=== PATIENT | female | born 1980 | race Caucasian/White ===

== ENCOUNTER 2020-08-23 14:42 | Inpatient (IN) | payer MEDICARE, OTHER ==
[~2020-08-23] VITALS: Ht 157.5 cm; Wt 59.4 kg
[2020-08-23] MEDS ORDERED: OMEP20ER PO (15:19)
[2020-08-23] MEDS ORDERED: PRAM.5 PO (15:19)
[2020-08-23] MEDS ORDERED: DIAZ5 PO (15:19)
[2020-08-23] MEDS ORDERED: CINA30 PO (15:20)
[2020-08-23] MEDS ORDERED: THERA-D2000 UNIT PO (15:20)
[2020-08-23] MEDS ORDERED: Calcium Acetat667 MG PO (15:20)
[2020-08-23 15:49] LABS: BASOPHILS ABSOLUTE AUTO 0.08 K/mm3 (0.00-0.23); BASOPHILS PERCENT AUTO 1 % (0-2); EOSINOPHILS ABSOLUTE AUTO 0.15 K/mm3 (0.00-0.68); EOSINOPHILS PERCENT AUTO 3 % (0-6); Hematocrit 39.5 % (33.0-51.0); Hemoglobin 12.9 g/dL (11.5-16.0); IMMATURE GRAN ABSOLUTE AUTO 0.01 K/mm3 (0.00-0.10); IMMATURE GRAN PERCENT AUTO 0 % (0-1); LYMPHOCYTES ABSOLUTE AUTO 0.99 K/mm3 (0.84-5.20); LYMPHOCYTES PERCENT AUTO 17 % (21-46); MONOCYTES ABSOLUTE AUTO 0.35 K/mm3 (0.16-1.47); MONOCYTES PERCENT AUTO 6 % (4-13); Mean Corpuscular HGB 28.9 pg (26.0-34.0); Mean Corpuscular HGB Conc 32.7 g/dL (31.5-36.5); Mean Corpuscular Volume 89 fL (80-100); Mean Platelet Volume 9.8 fL (9.1-12.4); NEUTROPHILS ABSOLUTE AUTO 4.31 K/mm3 (1.96-9.15); NEUTROPHILS PERCENT AUTO 73 % (41-73); Platelet Count 163 K/mm3 (150-400); RDW Coefficient Variation 15.4 % (11.7-14.2); RDW Standard Deviation 50.3 fL (35.1-46.3); Red Blood Cell Count 4.46 M/mm3 (3.80-5.20); White Blood Cell Count 5.89 K/mm3 (4.00-11.30)
[2020-08-23 16:33] LABS: Magnesium, Blood 3.4 mg/dL (1.6-2.4)
[2020-08-23 16:44] LABS: Albumin, Blood 3.5 g/dL (3.4-5.0); Albumin/Globulin Ratio 0.8 (0.8-1.8); Bilirubin, Total 0.6 mg/dL (0.1-1.0); Bun/Creatinine Ratio 6.9 (12.0-20.0); Calcium, Blood 8.2 mg/dL (8.5-10.1); Creatinine, Blood 19.7 mg/dL (0.40-1.00); Globulin, Blood 4.5 g/dL (2.2-4.0); Phosphorus, Blood 16.1 mg/dL (2.5-4.9); Potassium, Blood 7.1 mmol/L (3.5-5.5)
--- NOTE | 2020-08-23 18:36 | NUR ---
TRANSFER FROM ER TO PCU: PT TO PCU VIA STRETCHER AT 1810. ABLE TO STAND AND TRANSFER TO PCU BED. ALERT AND ORIENTED X4. TELE SHOWING SINUS RHYTHM WITH HR IN THE 70'S. ON ROOM AIR SATING ABOVE 92%. VITAL SIGNS STABLE. BILATERAL LOWER TIBIA AND FEET REDNESS. RIGHT LOWER EXTREMITY MORE RED THAN LEFT. PT STATES RIGHT LEG FROM LOWER TIBIA TO TOES IS PAINFUL. DR. RUIZ AT BEDSIDE AND AWARE OF THIS. CARLOS CALVO IN TO SEE PATIENT FOR DIALYSIS. PLAN TO RUN DIALYSIS FOR 2 HOURS TONIGHT AND AGAIN IN THE MORNING. RIGHT LEG DIALYSIS ACCESS SITE. DIALYSIS CURRENTLY RUNNING. ORIENTED TO ROOM, AND CALL LIGHT. EDUCATED ON FALL PREVENTION. WILL CONTINUE TO MONITOR AND REPORT OFF.
--- NOTE | 2020-08-23 18:57 | NUR ---
TELEPHONE CALL TO DR. MEADE REGARDING BLOOD SUGAR OF 35. 1 AMP D50 GIVEN BY PIPE LINERRN. ANDERSON GIVEN. VERBAL ORDER GIVEN FOR Q1 HOUR [place] CHECKS UNTIL BS STABLE AND D10 AT 75ML/HR ONLY IF HYPOGLYCEMIA PERSISTS.
[2020-08-23 23:16] LABS: Bun/Creatinine Ratio 5.4 (12.0-20.0); Creatinine, Blood 11.4 mg/dL (0.40-1.00); Potassium, Blood 4.3 mmol/L (3.5-5.5)
--- NOTE | 2020-08-24 05:29 | NUR ---
SHIFT SUMMARY PT TO UNIT FROM ED AT BEGINNING OF SHIFT. AXO. VSS. ON DIALYSIS WITH TECH IN ROOM. D50 GIVEN ON DAY SHIFT DUE TO CRITICAL LOW CBG. PT SYMPTOMATIC BUT LESSENING. Q1 CBG'S AT THAT TIME. BLOOD SUGARS HAVE STABILIZED AND PT NOW ON Q4. DIALYSIS COMPLETED W/OUT COMPLICATION. ADMISSION PACKET COMPLETED. PT CONTINUES ON RA. IN SR. R LEG GRAFT INTACT AND DRESSED BY RUG CLEANER HAND. PT HAVING SOME EPIGASTRIC PAIN, GI COCKTAIL ADMINISTERED TO SOME EFFECT. PT HAD EPISODE OF NAUSEA THIS SHIFT, MEDICATED AND SUBSIDED. PT TO RECEIVE SECOND ROUND OF DIALYSIS THIS AM PER TECH, AM LABS SHANELL PULLED THEN. WILL CONTINUE TO MONITOR UNTIL SHIFT CHANGE.
[2020-08-24 09:41] LABS: Hematocrit 39.5 % (33.0-51.0); Hemoglobin 12.7 g/dL (11.5-16.0)
[2020-08-24 10:06] LABS: Magnesium, Blood 2.8 mg/dL (1.6-2.4)
[2020-08-24 10:13] LABS: Albumin, Blood 3.1 g/dL (3.4-5.0); Anion Gap 12 mmol/L (6-16); Blood Urea Nitrogen 68 mg/dL (8-24); Bun/Creatinine Ratio 5.3 (12.0-20.0); CO2, Blood 28 mmol/L (21-32); Calcium, Blood 8.2 mg/dL (8.5-10.1); Chloride, Blood 100 mmol/L (98-108); Glomerular Filtration Rate 3 (60-); Glucose, Blood 133 mg/dL (70-99); Potassium, Blood 4.9 mmol/L (3.5-5.5); Sodium, Blood 140 mmol/L (136-145)
[2020-08-24 10:14] LABS: Phosphorus, Blood 9.2 mg/dL (2.5-4.9)
--- NOTE | 2020-08-24 14:46 | NUR ---
UPDATE: PT RESTING THIS AFTERNOON AFTER DIALYSIS. ATE LUNCH AND COMPLAINS OF LOWER BACK PAIN. TYLENOL PROVIDED. LOWER TIBIA/ANKLE/FEET BILATERAL REDNESS/DARKENING OF SKIN. WORSE ON RIGHT FOOT COMPARED TO LEFT. UNCHANGING FROM THIS AM. DR. RUIZ AND MABEL AWARE. ULTRASOUND ORDERED. USED MARKER TO FANG REDNESS. WILL CONTINUE TO MONITOR.
--- NOTE | 2020-08-24 17:58 | NUR ---
SHIFT SUMMARY: PT ALERT AND ORIENTED X4. ON ROOM AIR SATING ABOVE 92%. VITAL SIGNS STABLE. MEDICAL STATUS NO TELE. DENIES CHEST PAIN/PRESSURE. COMPLAINS OF LOWER BACK PAIN PT STATES IS FROM "THE BED AND LAYING DOWN", MEDICATED FOR EMAR WITH TYLENOL. DIALYSIS THIS AM FOR TWO HOURS. STATES SHE HAD LEG CRAMPS DURING HER SESSION. UP IN ROOM WALKING AROUND TO "STRETCH BACK" THROUGHOUT SHIFT. BILATERAL LOWER TIBIA/ANKLE/FOOT PINPOINT REDNESS WITH DARKENED SKIN, MORE SO ON THE RIGHT FOOT. ULTRASOUND DONE AT BEDSIDE, NEGATIVE FOR DVT. SKIN MARKER USED TO FANG REDNESS. PT STATES SHE DOES NOT PRODUCE URINE. EATING AND DRINKING WELL. CALL LIGHT REMAINED IN REACH. BED IN LOW LOCKED POSITION. WILL CONTINUE TO MONITOR AND REPORT OFF.
[2020-08-25 04:15] LABS: Hematocrit 42.8 % (33.0-51.0); Hemoglobin 13.7 g/dL (11.5-16.0)
[2020-08-25 04:47] LABS: Magnesium, Blood 2.6 mg/dL (1.6-2.4)
[2020-08-25 05:03] LABS: Anion Gap 8 mmol/L (6-16); Blood Urea Nitrogen 40 mg/dL (8-24); Bun/Creatinine Ratio 4.4 (12.0-20.0); CO2, Blood 29 mmol/L (21-32); Calcium, Blood 8.2 mg/dL (8.5-10.1); Chloride, Blood 98 mmol/L (98-108); Creatinine, Blood 9.05 mg/dL (0.40-1.00); Glomerular Filtration Rate 5 (60-); Glucose, Blood 118 mg/dL (70-99); Phosphorus, Blood 6.7 mg/dL (2.5-4.9); Sodium, Blood 135 mmol/L (136-145)
--- NOTE | 2020-08-25 07:47 | NUR ---
SHIFT SUMMARY PATIENT IS ALERT AND ORIENTED X4. INDEPENDENT IN ROOM. PATIENT HAS DISCOLORATION ON BLE, PICTURES IN CHART. PATIENT SLEPT MOST THE NIGHT. 02 SATS >95% ON RA. VSS, NO ACUTE CHANGES. CRITICAL VALUE OF CREATININE 9.05, TALKED WITH LINDA GONZALEZ, TRENDING IN THE RIGHT DIRECTION. DR. RUIZ IN TO SEE PATIENT, PATIENT TO RECIEVE AT LEAST 4 HOURS OF DIALYSIS TODAY. CALL LIGHT IN REACH.
[2020-08-25] MEDS ORDERED: DONNATAL PO (07:48)
[2020-08-25] MEDS ORDERED: ONDA4 PO (07:49)
--- NOTE | 2020-08-25 09:00 | NUR ---
UPDATE PT TAKEN TO DIALYSIS FOR TREATMENT. WILL AWAIT RETURN
--- NOTE | 2020-08-25 12:30 | NUR ---
UPDATE PT RETURNED FROM DIALYSIS. VS STABLE. ORDERS FOR DISCHARGE PROVIDED BY DR. MONROE. PT STATES SHE IS UNABLE TO DRIVE AFTER DIALYSIS TREAMENT AND SHE LIVES IN [place]. UNABLE TO HAVE A FAMILY MEMBER COME TO GET THE PT. CARE MANAGEMENT IN TO SET UP A HOTEL FOR PT TO STAY SO SHE CAN DRIVE HOME IN THE AM. PT EDUCATED ON MEDICATIONS AND DISCHARGE INSTRUCTIONS. ALL QUESTIONS ANSWERED. PT TO BE TAKEN OUT BY WC ONCE THE HOTEL IS SET UP BY CARE MANAGMENT.
== END 2020-08-25 14:37 | disposition home or self-care (01) | DRG 640 ==
LOC: ER 14:42 → PCU 18:03 → ICUW 18:03 → PCU 18:06
PROVIDERS: Family Medicine; Internal Medicine Nephrology; Physician Assistant; ADMIT Hospitalist
PROC: 5A1D70Z Performance of Urinary Filtration, Intermittent, Less than 6 Hours Per Day (ICD-10-PCS; principal; 2020-08-23)
PROC: 5A1D70Z Performance of Urinary Filtration, Intermittent, Less than 6 Hours Per Day (ICD-10-PCS; 2020-08-24)
PROC: 5A1D70Z Performance of Urinary Filtration, Intermittent, Less than 6 Hours Per Day (ICD-10-PCS; 2020-08-25)
DX: E87.5 Hyperkalemia (principal); N18.6 End stage renal disease; K86.1 Other chronic pancreatitis; E83.51 Hypocalcemia; N26.9 Renal sclerosis, unspecified; F17.200 Nicotine dependence, unspecified, uncomplicated; E87.1 Hypo-osmolality and hyponatremia; I87.2 Venous insufficiency (chronic) (peripheral); E87.70 Fluid overload, unspecified; E88.09 Other disorders of plasma-protein metabolism, not elsewhere classified; E83.41 Hypermagnesemia; E83.39 Other disorders of phosphorus metabolism; Z99.2 Dependence on renal dialysis; Z91.15 Patient's noncompliance with renal dialysis; Z79.899 Other long term (current) drug therapy; Z88.0 Allergy status to penicillin; Z88.2 Allergy status to sulfonamides
CPT/HCPCS: 36415; 80048; 80053; 80069; 82330; 82947; 83735; 84100; 85014; 85018; 85025; 93005; 93010; 93970; 96365; 96372-59; 96375; 99285-25; A9270; J0610; J1200; J1644; J1815; J2405